=== PATIENT | female | born 1950 | race Caucasian/White ===

== ENCOUNTER 2019-01-09 12:06 | Emergency (ER) | payer MEDICARE ==
[~2019-01-09] VITALS: Ht 157.5 cm; Wt 78.2 kg
[2019-01-09 12:22] VITALS: Ht 157.5 cm; Wt 78.2 kg
[2019-01-09] MEDS ORDERED: ULTRAM50 MG PO (12:25)
[2019-01-09] MEDS ORDERED: CYCLOBENZAPRINE10 MG PO (12:26)
[2019-01-09] MEDS ORDERED: ZANAFLEX4 MG PO (12:26)
[2019-01-09 15:18] VITALS: BP 124/70
== END 2019-01-09 15:28 | disposition home or self-care (01) ==
LOC: D.ER 12:06
DX: M25.532 Pain in left wrist (principal); M54.5 Low back pain